=== PATIENT | female | born 1935 | race Caucasian/White ===

== ENCOUNTER 2016-08-16 04:13 | Emergency (ER) | payer OTHER ==
[~2016-08-16] VITALS: Ht 152.4 cm; Wt 91.0 kg
[~2016-08-16 04:13] MED LIST: ADVAIR 250-501 EACH IH; ADVAIR 250/501 DISK IH; AMARYL2 MG PO; AMARYL4 MG PO; AMBIEN10 MG PO; AMBIEN5 MG PO; AMLODIPINE BESYL5 MG PO; ASCORBIC ACID500 M3 PO; ASPIR 8181 M1 PO; ASPIR-LOW81 MG PO; ASPIR-TRIN325 M1 PO; ASPIRIN EC325 M1 PO; ASPIRIN325 MG PO; AUGMENTIN875 MG PO; Ambien PO; Ascorbic Acid,Ester- PO; BACTRIM,SEPT1 TABLET PO; BENADRYL25 MG PO; BREO ELLIPTA I1 EACH IH; C COMPLEX500 MG PO; CEFDINIR300 MG PO; CEFTIN250 MG PO; CELEBREX200 MG PO; CILOSTAZOL50 MG PO; COLACE100 MG PO; CONZIP100 MG PO; COREG12.5 M1 PO; COREG25 M1 PO; COREG6.25 M1 PO; COREG6.25 MG PO; CYANOCOBALAM1000 MCG PO; Coreg PO; DAILY VITAMIN1 EAC8 PO; DITROPAN XL10 MG PO; DOVONEX 0.005%60 GM PO; DUONEB 2.5-0.5 M3 ML AEROSOL; DUONEB 2.5-0.5 M3 ML IH; DUONEB3 ML; DUONEB3 ML IH; ECOTRIN325 MG PO; Ecotrin PO; FEOSOL325 MG PO; FOLIC ACID1 MG PO; Feosol PO; Folvite PO; GABAPENTIN600 MG PO; GLUCOPHAGE XR1000 MG PO; GLUCOPHAGE1000 MG PO; HALOBETASOL PRO TP; HUMALOG KW200 UNIT/1 SC; HUMALOG100 UNIT/1 SC; HUMALOG100 UNIT/2 SC; HYDROCODON-ACE1 EAC7 PO; IMODIUM A-1 MG/7.5 M PO; IRON325 M1 PO; IRON325 MG PO; IRON45 MG PO; IRON55 MG PO; JANUVIA100 MG PO; JANUVIA25 M1 PO; K-TAB10 MEQ PO; KEFLEX500 MG PO; LACTINEX,FLO1 PACKET PO; LEVAQUIN750 MG PO; LEVEMIR FL100 UNIT/1 SC; LEVEMIR FL100 UNITS/ PO; LEVEMIR FL100 UNITS/ SC; LEVEMIR100 UNIT/2 SC; LIDOCAINE700 MG TD; LIDODERM 5% P1 PATCH PO; LIDODERM 5% P1 PATCH TD; LIPITOR5 MG PO; LISINOPRIL10 MG PO; LISINOPRIL5 MG PO; LO-DOSE ASPIRIN81 M2 PO; LOPERAMIDE1 MG/5 ML PO; LYRICA150 MG PO; LYRICA50 MG PO; Levemir Flexpen SC; MIRALAX, GLYCOL1 PK1 PO; MIRALAX17 GM PO; MOTRIN600 MG PO; MULTIVITAMIN1 EAC2 PO; Miralax, Glycolax PO; NEURONTIN600 M1 PO; NEURONTIN600 MG PO; NEXIUM40 MG PO; NORCO 5/3251 TABLET PO; NORFLEX100 MG PO; NOVOLOG 10100 UNITS/ SC; NOVOLOG PE100 UNITS/ SC; NOVOLOG100 UNIT/3 SQ; Neurontin PO; NovoLOG Pen 3 ml SC; OMEGA 3 1,0001 EACH PO; OMEGA-3 + VITA1 EAC1 PO; OXAYDO5 MG PO; OXYBUTYNIN CHLO10 MG PO; OXYCODONE-ACET1 EACH PO; OXYCODONE-APAP1 EACH PO; PANTOPRAZOLE SO40 MG PO; PERCOCET 5/31 TABLET PO; PERI-COLACE TA1 EACH PO; PLETAL100 MG PO; PLETAL50 MG PO; PREDNISONE10 MG PO; PROMETHAZINE HC25 M1 PO; PROTONIX40 MG PO; Phenergan PO; Pletal PO; Protonix PO; Proventil,Ventolin H IH; REGLAN10 MG PO; SENNO8.6 MG PO; SIMVASTATIN20 MG PO; SIMVASTATIN40 MG PO; ST. JOSEPH ASPI81 MG PO; Senokot,Sennagen PO; TEKTURNA150 MG PO; TOUJEO SOL300 UNIT/1 SC; TRAMADOL HCL PO; TRAMADOL HCL50 MG PO; TRAZODONE HCL50 MG PO; Theragran PO; Tylenol Regular Stre PO; ULTRACET1 TABLET PO; ULTRAM50 MG PO; VITAMIN B12-FO1 EACH PO; VITAMIN C500 M1 PO; VITAMIN D1000 INTUN PO; VITAMIN D1000 UNIT PO; VITAMIN D31000 UNI2 PO; VITAMIN D31000 UNIT PO; ValTRex PO; Vicodin,Norco 5/325 PO; Vitamin D PO; XELODA500 MG PO; XIFAXAN550 MG PO; Xarelto PO; ZESTRIL,PRINIVIL5 MG PO; ZESTRIL10 MG PO; ZESTRIL20 MG PO; ZOCOR40 MG PO; ZOFRAN ODT4 MG PO; ZOFRAN4 MG PO; ZOFRAN8 MG PO; Zestril,Prinivil PO; Zocor PO; Zofran PO; [UNRECOGNIZED DRUG - OTHER] PO; [UNRECOGNIZED DRUG - OTHER] PO
[2016-08-16 05:36] LABS: CHLORIDE 103 mEq/L (99-109); POTASSIUM 4.1 mEq/L (3.7-5.4); SODIUM 136 mEq/L (136-147)
[2016-08-16 05:38] LABS: HEMATOCRIT 36.3 % (36.0-46.0); MCH 28.1 PG (29.0-34.0); MCHC 32.2 G/DL (30.0-36.0); MCV 87.3 FL (83-99); PLATELET COUNT 136 K/uL (156-360); RBC DIS.WIDTH-CV 14.4 % (11.8-14.6); RED BLOOD COUNT 4.16 M/uL (3.80-5.20); WHITE BLOOD COUNT 7.5 K/uL (4.1-10.2)
[2016-08-16 05:39] LABS: ANION GAP 13 MEQ/L (2-14)
[2016-08-16 05:42] LABS: GFR ESTIMATE (CALCULATED) 57 mL/min/
[2016-08-16 05:43] LABS: UREA NITROGEN (BUN) 19 mg/dL (9-23)
[2016-08-16 05:47] LABS: TROP-I INTERPRETATION NEGATIVE; TROPONIN-I < 0.01 ng/mL (0.0-0.30)
[2016-08-16 05:52] LABS: ADD MIUA? YES; BILIRUBIN NEGATIVE; BLOOD NEGATIVE; COLOR STRAW ((YELLOW)); GLUCOSE (STRIP) >=500; KETONES NEGATIVE; LEUKOCYTES TRACE; NITRITE NEGATIVE; PROTEIN (STRIP) NEGATIVE; SPECIFIC GRAVITY 1.016 (1.000-1.030)
[2016-08-16 05:55] LABS: GLUCOSE 410 mg/dL (70-99)
[2016-08-16 06:05] LABS: BACTERIA NONE SEEN /HPF; EPITHELIAL CELLS RARE /HPF; MUCUS NONE SEEN /LPF; RED BLOOD CELLS 0-5 /HPF (0-5); UCUL ADDED? NO
[2016-08-16 06:45] LABS: CARBON DIOXIDE (BICARBONATE) 28.6 MEQ/L (20-31)
[2016-08-16 08:04] LABS: POINT-OF-CARE METER ID UU13113702
[2016-08-16] MEDS ORDERED: LIDODERM 5% P1 PATCH TD (08:04)
[2016-08-16] MEDS ORDERED: ZANAFLEX2 MG PO (08:04)
[2016-08-16] MEDS ORDERED: OXAYDO5 MG PO (08:04)
[2016-08-16 08:20] VITALS: BP 150/75
== END 2016-08-16 08:49 | disposition home or self-care (01) ==
LOC: EME 04:13
PROVIDERS: Emergency Medicine
DX: M54.9 Dorsalgia, unspecified (principal); G89.29 Other chronic pain; E11.65 Type 2 diabetes mellitus with hyperglycemia; I10 Essential (primary) hypertension; E78.5 Hyperlipidemia, unspecified; I25.2 Old myocardial infarction; K21.9 Gastro-esophageal reflux disease without esophagitis; Z86.73 Personal history of transient ischemic attack (TIA), and cerebral infarction without residual deficits; Z85.038 Personal history of other malignant neoplasm of large intestine; Z85.3 Personal history of malignant neoplasm of breast; Z88.6 Allergy status to analgesic agent; Z87.891 Personal history of nicotine dependence
CPT/HCPCS: 74176; 80048; 81003; 82010; 82803; 82948; 84484; 85027; 87086; 99281; 99285; J1885; J2270; J2405; J7030

== ENCOUNTER 2016-09-12 18:49 | Inpatient (IN) | payer OTHER ==
[~2016-09-12] VITALS: Ht 152.4 cm; Wt 96.8 kg
[~2016-09-12 18:49] MED LIST changes: +ZANAFLEX2 MG PO
[2016-09-12 19:07] LABS: POINT-OF-CARE METER ID UU13113778
[2016-09-12 19:43] LABS: CHLORIDE 101 mEq/L (99-109); POTASSIUM 3.9 mEq/L (3.7-5.4); SODIUM 136 mEq/L (136-147)
[2016-09-12 19:46] LABS: ANION GAP 11 MEQ/L (2-14)
[2016-09-12 19:47] LABS: HEMATOCRIT 35.4 % (36.0-46.0); MCH 28.9 PG (29.0-34.0); MCHC 33.1 G/DL (30.0-36.0); MCV 87.4 FL (83-99); MEAN PLAT.VOLUME 10.7 uM^3 (9.5-12.4); PLATELET COUNT 136 K/uL (156-360); RBC DIS.WIDTH-CV 14.5 % (11.8-14.6); RBC DIS.WIDTH-SD 46.7 % (39-53); RED BLOOD COUNT 4.05 M/uL (3.80-5.20); WHITE BLOOD COUNT 10.1 K/uL (4.1-10.2)
[2016-09-12 19:49] LABS: GFR ESTIMATE (CALCULATED) 57 mL/min/; UREA NITROGEN (BUN) 18 mg/dL (9-23)
[2016-09-12 19:57] LABS: GLUCOSE 361 mg/dL (70-99)
[2016-09-12 19:59] LABS: TOTAL BILIRUBIN 0.3 mg/dL (0.0-1.0)
[2016-09-12 20:00] LABS: ALKALINE PHOSPHATASE 101 IU/L (3-129)
[2016-09-12 20:02] LABS: DIRECT BILIRUBIN 0.2 mg/dL (0.0-0.3)
[2016-09-12 20:04] LABS: LIPASE 565 U/L (1.0-51.0)
[2016-09-12 20:33] LABS: ADD MIUA? YES; BILIRUBIN NEGATIVE; BLOOD NEGATIVE; COLOR YELLOW ((YELLOW)); GLUCOSE (STRIP) >=500; KETONES 5; LEUKOCYTES TRACE; NITRITE NEGATIVE; PROTEIN (STRIP) 100
[2016-09-12 20:38] LABS: BACTERIA RARE /HPF; EPITHELIAL CELLS RARE /HPF; MUCUS TRACE /LPF; RED BLOOD CELLS 0-5 /HPF (0-5); UCUL ADDED? NO; WHITE BLOOD CELLS 0-5 /HPF (0-5)
[2016-09-12 21:13] LABS: AMYLASE 13 IU/L (1-118); SAMPLE HEMOLYSIS CHECK 0; SAMPLE ICTERIC CHECK 0; SAMPLE LIPEMIA CHECK 0
[2016-09-13] MEDS ORDERED: COREG12.5 M1 PO (00:28)
[2016-09-13] MEDS ORDERED: BREO ELLIPTA I1 EACH IH (00:31)
[2016-09-13] MEDS ORDERED: NORVASC5 MG PO (00:37)
[2016-09-13] MEDS ORDERED: TOUJEO SOL300 UNIT/1 SC (00:55)
[2016-09-13] MEDS ORDERED: SPIRIVA1 INHALATI IH (00:57)
[2016-09-13] MEDS ORDERED: TRESIBA FL200 UNIT/1 SC (00:57)
[2016-09-13] MEDS ORDERED: LIDOCAINE-PRIL1 EACH TP (00:58)
[2016-09-13 05:49] VITALS: BP 151/67
[2016-09-13 07:39] VITALS: BP 162/87
[2016-09-13 09:33] LABS: ADD MIUA? NO; BILIRUBIN NEGATIVE; BLOOD NEGATIVE; COLOR STRAW ((YELLOW)); GLUCOSE (STRIP) NEGATIVE; KETONES NEGATIVE; LEUKOCYTES NEGATIVE; NITRITE NEGATIVE; PROTEIN (STRIP) NEGATIVE; SPECIFIC GRAVITY 1.012 (1.000-1.030); UCUL ADDED? NO; UROBILINOGEN 0.2 MG/DL (0.2-1.0)
[2016-09-13 11:52] LABS: POINT-OF-CARE METER ID UU14188625
[2016-09-13 11:56] VITALS: BP 106/60
[2016-09-13 16:00] VITALS: BP 118/62
[2016-09-13 16:48] LABS: POINT-OF-CARE METER ID UU14188625
[2016-09-13 21:18] LABS: POINT-OF-CARE METER ID UU14188625
[2016-09-13 22:30] VITALS: BP 179/76
[2016-09-14 01:53] VITALS: BP 140/62
[2016-09-14 05:34] LABS: BASOPHIL COUNT 0.1 K/uL (0-0.1); EOSINOPHIL (%) 5.7 % (0-5); EOSINOPHIL COUNT 0.5 K/uL (0-0.3); HEMATOCRIT 36.4 % (36.0-46.0); IMMATURE GRANULOCYTE (%) 0.6 % (0.0-0.7); IMMATURE GRANULOCYTE COUNT 0.1 K/uL; INSTRUMENT ABS NEUTROPHIL CT 4.5 K/uL; LYMPHOCYTE COUNT 2.2 K/uL (1.0-2.8); MCH 29.2 PG (29.0-34.0); MCHC 32.7 G/DL (30.0-36.0); MCV 89.4 FL (83-99); MEAN PLAT.VOLUME 10.6 uM^3 (9.5-12.4); MONOCYTE (%) 10.2 % (3-12); MONOCYTE COUNT 0.8 K/uL (0-0.8); NEUTROPHIL (%) 55.6 % (45-76); NEUTROPHIL COUNT 4.5 K/uL (1.8-6.4); PLATELET COUNT 123 K/uL (156-360); RBC DIS.WIDTH-CV 14.6 % (11.8-14.6); RBC DIS.WIDTH-SD 48.1 % (39-53); RED BLOOD COUNT 4.07 M/uL (3.80-5.20); WHITE BLOOD COUNT 8.1 K/uL (4.1-10.2)
[2016-09-14 06:28] LABS: ANION GAP 10 MEQ/L (2-14); CHLORIDE 104 MEQ/L (99-109); GFR ESTIMATE (CALCULATED) 57 mL/min/; GLUCOSE 205 mg/dL (70-99); POTASSIUM 4.2 MEQ/L (3.7-5.4); SAMPLE HEMOLYSIS CHECK 0; SAMPLE ICTERIC CHECK 0; SAMPLE LIPEMIA CHECK 0; SODIUM 139 MEQ/L (136-147); UREA NITROGEN (BUN) 19 mg/dL (9-23)
[2016-09-14 07:58] VITALS: BP 161/86
[2016-09-14 11:45] LABS: POINT-OF-CARE METER ID UU14174225
[2016-09-14 16:00] VITALS: BP 146/82
[2016-09-14] MEDS ORDERED: TRESIBA FL200 UNIT/1 SC (16:30)
== END 2016-09-14 18:05 | disposition home or self-care (01) | DRG 439 ==
LOC: EME 18:49 → EDOF 09-13 03:21 → 5SOUTH 09-13 05:02
PROVIDERS: Hospitalist; Internal Medicine; Physician Assistant Medical
DX: K85.90 Acute pancreatitis without necrosis or infection, unspecified (principal); I42.9 Cardiomyopathy, unspecified; Z68.41 Body mass index [BMI] 40.0-44.9, adult; E11.65 Type 2 diabetes mellitus with hyperglycemia; E66.01 Morbid (severe) obesity due to excess calories; I10 Essential (primary) hypertension; E78.5 Hyperlipidemia, unspecified; J44.9 Chronic obstructive pulmonary disease, unspecified; I25.10 Atherosclerotic heart disease of native coronary artery without angina pectoris; G47.33 Obstructive sleep apnea (adult) (pediatric); K21.9 Gastro-esophageal reflux disease without esophagitis; L40.50 Arthropathic psoriasis, unspecified; I50.9 Heart failure, unspecified; I70.0 Atherosclerosis of aorta; I51.7 Cardiomegaly; K76.0 Fatty (change of) liver, not elsewhere classified; G43.909 Migraine, unspecified, not intractable, without status migrainosus; M79.7 Fibromyalgia; R16.0 Hepatomegaly, not elsewhere classified; I70.203 Unspecified atherosclerosis of native arteries of extremities, bilateral legs; K57.30 Diverticulosis of large intestine without perforation or abscess without bleeding; Z85.3 Personal history of malignant neoplasm of breast; Z85.038 Personal history of other malignant neoplasm of large intestine; Z90.49 Acquired absence of other specified parts of digestive tract; Z90.12 Acquired absence of left breast and nipple; Z79.4 Long term (current) use of insulin; Z87.891 Personal history of nicotine dependence; Z99.89 Dependence on other enabling machines and devices; I25.2 Old myocardial infarction; Z86.73 Personal history of transient ischemic attack (TIA), and cerebral infarction without residual deficits; Z82.49 Family history of ischemic heart disease and other diseases of the circulatory system; Z83.3 Family history of diabetes mellitus; Z82.3 Family history of stroke; Z83.6 Family history of other diseases of the respiratory system
CPT/HCPCS: 71020; 74177; 80048; 80076; 81003; 82010; 82150; 82803; 82948; 83690; 85025; 85027; 87177; 87329; 87493; 94640; 94640 76; 99202; 99281; 99285; J1644; J1815; J1885; J7030

== ENCOUNTER 2017-06-12 16:46 | Emergency (ER) | payer OTHER ==
[~2017-06-12] VITALS: Ht 172.7 cm; Wt 95.4 kg
[~2017-06-12 16:46] MED LIST changes: +LIDOCAINE-PRIL1 EACH TP; +NORVASC5 MG PO; +SPIRIVA1 INHALATI IH; +TRESIBA FL200 UNIT/1 SC
[2017-06-12 17:47] LABS: HEMATOCRIT 35.9 % (36.0-46.0); HEMOGLOBIN 11.9 G/DL (11.9-15.5); MCH 29.5 PG (29.0-34.0); MCHC 33.1 G/DL (30.0-36.0); MCV 89.1 FL (83-99); PLATELET COUNT 173 K/uL (156-360); RBC DIS.WIDTH-CV 15.3 % (11.8-14.6); RBC DIS.WIDTH-SD 49.9 % (39-53); RED BLOOD COUNT 4.03 M/uL (3.80-5.20); WHITE BLOOD COUNT 13.1 K/uL (4.1-10.2)
[2017-06-12 17:57] LABS: ALBUMIN 3.5 g/dL (3.2-4.8); CHLORIDE 104 mEq/L (99-109); SODIUM 137 mEq/L (136-147)
[2017-06-12 17:59] LABS: GLUCOSE 179 mg/dL (70-99); TOTAL PROTEIN 6.9 g/dL (6.4-8.3)
[2017-06-12 18:01] LABS: TOTAL BILIRUBIN 0.6 mg/dL (0.0-1.0)
[2017-06-12 18:03] LABS: ALKALINE PHOSPHATASE 84 IU/L (3-129); GFR ESTIMATE (CALCULATED) 57 mL/min/
[2017-06-12 18:04] LABS: UREA NITROGEN (BUN) 18 mg/dL (9-23)
[2017-06-12 18:05] LABS: AST (GOT) 15 IU/L (2-34)
[2017-06-12 18:06] LABS: ALT (GPT) 11 IU/L (3-49); LIPASE 3 U/L (1.0-51.0)
[2017-06-12 20:32] LABS: APPEARANCE CLEAR ((CLEAR)); BILIRUBIN NEGATIVE; BLOOD NEGATIVE; COLOR YELLOW ((YELLOW)); GLUCOSE (STRIP) NEGATIVE; KETONES NEGATIVE; LEUKOCYTES TRACE; NITRITE NEGATIVE; PROTEIN (STRIP) 30; UROBILINOGEN 0.2 MG/DL (0.2-1.0)
[2017-06-12] MEDS ORDERED: ZOFRAN4 MG PO (20:43)
[2017-06-12 20:50] LABS: SPECIFIC GRAVITY 1.069 (1.000-1.030)
[2017-06-12 21:01] LABS: BACTERIA 1+ /HPF; EPITHELIAL CELLS 1+ /HPF; MUCUS NONE SEEN /LPF; RED BLOOD CELLS 0-5 /HPF (0-5); UCUL ADDED? NO; WHITE BLOOD CELLS 0-5 /HPF (0-5)
[2017-06-12 21:34] VITALS: BP 130/41
== END 2017-06-12 21:43 | disposition home or self-care (01) ==
LOC: EME 16:46
PROVIDERS: Physician Assistant
DX: R11.2 Nausea with vomiting, unspecified (principal); R19.7 Diarrhea, unspecified; R50.9 Fever, unspecified; I10 Essential (primary) hypertension; E78.5 Hyperlipidemia, unspecified; J44.9 Chronic obstructive pulmonary disease, unspecified; I25.2 Old myocardial infarction; E11.9 Type 2 diabetes mellitus without complications; Z79.4 Long term (current) use of insulin; Z95.1 Presence of aortocoronary bypass graft; Z86.73 Personal history of transient ischemic attack (TIA), and cerebral infarction without residual deficits; Z79.82 Long term (current) use of aspirin; Z85.038 Personal history of other malignant neoplasm of large intestine; Z85.3 Personal history of malignant neoplasm of breast; Z90.12 Acquired absence of left breast and nipple; Z90.710 Acquired absence of both cervix and uterus; Z90.49 Acquired absence of other specified parts of digestive tract; Z87.891 Personal history of nicotine dependence
CPT/HCPCS: 74177; 80053; 81003; 83605; 83690; 85027; 99281; 99285; J7030